=== PATIENT | female | born 1950 | race Caucasian/White ===

== ENCOUNTER 2018-11-21 17:07 | Emergency (ER) | payer MEDICARE, OTHER ==
[~2018-11-21] VITALS: Ht 160 cm; Wt 54.4 kg
[2018-11-21 17:07] VITALS: BP_SYST 97
--- NOTE | 2018-11-21 17:07 | NUR ---
BROUGHT BACK TO BED #8 AND TRIAGED. REPORT GIVEN TO CANDICE
--- NOTE | 2018-11-21 17:20 | NUR ---
Patient brought in with co-worker. Patient complains constant neck pain radiating to he back of her head with episodes of dizziness. Patient reports pain is worse with movement. Pain 8/10. Reports using tramadol and advil with mild relief. Denies trauma, fevers, numbness or weakness. No other complaints/injuries per patient or as noted.
--- NOTE | 2018-11-21 17:54 | NUR ---
HARLAN Junior at bedside examining patient.
[2018-11-21] MEDS ORDERED: CYCLOBENZAPRINE HCL 10 MG TABLET (FLEXERIL) PO ONE (18:00)
[2018-11-21] MEDS ORDERED: KETOROLAC TROMETHAMINE 30 MG VIAL IM ONE (18:00)
--- NOTE | 2018-11-21 18:01 | NUR ---
Patient medicated per MD orders. Patient tolerated well.
[2018-11-21 18:56] VITALS: BP_SYST 102
--- NOTE | 2018-11-21 18:56 | NUR ---
Patient given written and verbal discharge instructions and verbalizes understanding. ER MD discussed with patient the results and treatment provided. Patient in stable condition. ID arm band removed. Rx of flexeril given. Patient educated on pain management and to follow up with PMD in 2-3 days. Pain Scale 0/10 Opportunity for questions provided and answered. Medication side effect fact sheet provided.
== END 2018-11-21 18:56 | disposition home or self-care (01) ==
LOC: SED 17:07
DX: G89.29 Other chronic pain (principal); M54.2 Cervicalgia; R42 Dizziness and giddiness; I10 Essential (primary) hypertension
CPT/HCPCS: 72125-TC; 96372; 99284; J1885